=== PATIENT | male | born 1990 | race Caucasian/White ===

== ENCOUNTER → 2020-07-14 | Outpatient (CLI) | payer OTHER ==
[~2020-07-14] MED LIST: LANS30EC PO
== END | disposition home or self-care (01) ==
LOC: LAB EV 08:16 → LAB SHORT 09:22
DX: R11.2 Nausea with vomiting, unspecified (principal)
CPT/HCPCS: 87338

== ENCOUNTER 2020-09-14 10:36 | Day surgery (SDC) | payer OTHER ==
[~2020-09-14] VITALS: Ht 182.9 cm; Wt 137.6 kg
== END 2020-09-14 12:08 | disposition home or self-care (01) ==
LOC: ORSCSDS 10:36
PROVIDERS: Internal Medicine Gastroenterology
PROC: 0DB68ZX Excision of Stomach, Via Natural or Artificial Opening Endoscopic, Diagnostic (ICD-10-PCS; principal; 2020-09-14 11:45)
DX: R11.2 Nausea with vomiting, unspecified (principal); K20.80 Other esophagitis without bleeding; E66.01 Morbid (severe) obesity due to excess calories; Z68.41 Body mass index [BMI] 40.0-44.9, adult; Z79.899 Other long term (current) drug therapy
CPT/HCPCS: 88305; 88342; J2250; J2704; J7120

== ENCOUNTER 2020-11-19 20:16 | Emergency (ER) | payer OTHER ==
[~2020-11-19] VITALS: Ht 182.9 cm; Wt 136.1 kg
== END 2020-11-19 21:18 | disposition home or self-care (01) ==
LOC: ER 20:16
DX: B34.9 Viral infection, unspecified (principal)
CPT/HCPCS: 99283